=== PATIENT | male | born 1985 | race Caucasian/White ===

== ENCOUNTER 2021-03-05 19:52 | Emergency (ER) | payer OTHER ==
[~2021-03-05 19:52] MED LIST: ONDANSETRON ODT4 MG SL; XANAX0.5 MG PO
[2021-03-05 21:12] LABS: BASOPHIL 0.7 % (0-2); EOSINOPHIL 3.6 % (0-5); HCT 45.9 % (42.0-52.0); HGB 15.9 g/dl (13.2-18.0); LYMPHOCYTE 27.9 % (15-48); MCH 30.6 pg (25.0-31.0); MCHC 34.6 g/dL (32.0-36.0); MCV 88.4 fL (78.0-100.0); MONOCYTE 11.6 % (0-12); MPV 9.2 fL (6.0-9.5); NEUTROPHIL 55.7 % (41-80); NRBC 0; PLT 215 K/uL (150-400); RBC 5.19 M/uL (4.70-6.00); RDW 11.6 % (11.5-14.0); WBC 7.5 K/uL (4.0-10.5)
[2021-03-05 21:24] LABS: ALBUMIN 4.1 g/dL (3.4-5.0); BILIRUBIN - TOTAL 0.4 mg/dL (0.2-1.0); BUN/CREAT RATIO (CALC) 12.9 RATIO; CREATININE 0.93 mg/dL (0.67-1.17); GLOBULIN (CALCULATION) 3.3 g/dL; POTASSIUM 3.9 mmol/L (3.5-5.1); TOTAL PROTEIN 7.4 g/dL (6.4-8.2)
[2021-03-05] MEDS ORDERED: PROTONIX 40MG T40 MG PO (22:38)
[2021-03-05 22:45] LABS: BILIRUBIN NEGATIVE (NEGATIVE); BLOOD NEGATIVE Ery/uL (NEGATIVE); CLARITY CLEAR (CLEAR); COLOR YELLOW (YELLOW); GLUCOSE (U) NORMAL (NORMAL); LEUKOCYTES NEGATIVE Leu/uL (NEGATIVE); NITRITE NEGATIVE (NEGATIVE); PROTEIN NEGATIVE (NEGATIVE); UROBILINOGEN 0.2 mg/dL (0.2-1.0)
== END 2021-03-05 22:51 | disposition home or self-care (01) ==
LOC: FER 19:52
PROVIDERS: Nurse Practitioner Family
DX: R10.31 Right lower quadrant pain (principal)
CPT/HCPCS: 36415; 80053; 81003; 85025; J7030; Q9967